=== PATIENT | male | born 1945 | race Caucasian/White ===

== ENCOUNTER 2017-03-19 08:59 | Observation (INO) ==
[2017-03-19] MEDS ORDERED: ASPIRIN 325 MG TABLET PO STA (09:12)
[2017-03-19] MEDS ORDERED: ENOXAPARIN 100 MG/ML SYRINGE SUBCUT STA (09:12)
[2017-03-19] MEDS ORDERED: MORPHINE 2 MG/1 ML SYRINGE IV PRN (09:12)
[2017-03-19] MEDS ORDERED: ONDANSETRON 4 MG/2 ML VIAL IV PRN (09:12)
[2017-03-19] MEDS ORDERED: NITROGLYCERIN SL 0.4 MG TABLET SL PRN (09:12)
[2017-03-19] MEDS ORDERED: NITROGLYCERIN 2% OINT 1 INCH/GM PACK TOP STA (09:12)
--- NOTE | 2017-03-19 09:15 | EKG Report ---
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
--- NOTE | 2017-03-19 09:29 | XRay Report ---
XR chest 2V Date: 03/19/2017 9:12 AM History: Chest pain Comparison: 11/17/2014 Technique: PA and lateral chest Findings: The heart is normal in size with coronary artery calcifications/stents. The lungs are overexpanded with chronic scarring. Minimal atelectasis at the left lung base. Stable mediastinum. Persistent dextroscoliosis of the thoracic spine with superimposed degenerative changes. Impression: COPD with chronic scarring. Minimal atelectasis at the left lung base. Coronary artery calcifications/stents. Stable scoliosis. PROCEDURE INTERPRETED AT [facility] DEPARTMENT OF RADIOLOGY Final Report Signed by: Dr. Cyndi Barrios
--- NOTE | 2017-03-19 09:30 | Emergency Department Note ---
Kamlesh Guadalupe Brooke, am scribing for, and in the presence of, Joel Garcia MD 09:26 . Radha Guadalupe James D, MD, personally performed the services described in this documentation, ascribed by Joan Whitlock in my presence, and it is both accurate and complete 928 . Arrival - Arrival Chief Complaint: Chest Pain Stated Complaint: chest pain,neck pain ED Nursing Triage Note: Pt c/o CP that awoke him this am with left sided neck pain and not feeling well. Denies SOB. Mode of Arrival: Ambulatory Limitations: No Limitations Source: Patient, RN Notes Reviewed Time Seen by Provider: 03/19/17 09:12 - History of Present Illness HPI Narrative: Patient is a 71 year old male who presents to the ED with c/o chest pain that started around 0400 this morning. Patient says the pain woke him from his sleep and lasted about an hour. He says he is also having pain in the left side of his neck. Patient says the chest pain is gone now but he is still having the neck pain. Patient says he had "gas" this morning and says he "finally went to the bathroom" and felt a "little better." He denies having any shortness of breath, diaphoresis, nausea, blood in stool, melena, or abdominal pain. Patient took an 81mg ASA this morning. He says he had an MS(stent placed) about two years ago and his Engineering Agent is Dr. Meyers. He has an appointment with him next week. Patient says the pain he had this morning "kind of felt the same as when I had my heart attack." Patient says he takes the ASA daily and also take "a quarter" of a 75mg Plavix. Patient also has PMHx of CAD, HTN, migraines , renal tumor, and hemorrhoids. He is not a smoker. Onset (ago): hour(s) (5) Consistency: intermittent, now resolved Allergies/Adverse Reactions: Allergies Allergy/AdvReac Type Severity Reaction Status Date / Time No Known Allergies Allergy Unverified 08/27/15 13:48 Home Medications: Home Medications Medication Instructions Recorded Confirmed Type Carvedilol 3.25 tablet PO BID 08/27/15 03/19/17 History Clopidogrel [Plavix] 75 mg PO DAILY #30 tablet 08/30/15 03/19/17 Rx Aspirin [Aspirin EC] 81 mg PO DAILY 03/19/17 03/19/17 History Atorvastatin [Lipitor] 20 mg PO DAILY 03/19/17 03/19/17 History Review of System - Review of System 12 point system: reviewed and no additional remarkable complaints except as stated - Review of System Constitutional: Absent: fever Respiratory: Absent: respiratory distress Cardiovascular: Present: chest pain Gastrointestinal: Absent: abdominal pain, nausea Musculoskeletal: Present: neck pain (left side) Skin: Absent: rash Medical,Surgical,& Family Hx - Medical History Cardio: History of: CAD, Hypertension, MS Neurology: History of: Migraine No history of: Seizures HEENT: History of: Ear Problem (hard of hearing) Renal: History of: Renal Problems (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) Gastrointestinal: History of: Hemorrhoids - Surgical History Cardiac Surgeries: Sugical HX of: Cardiac Catheterization (STENT IN OCTOBER) Thoracic Surgeries: Patient denies;: Organ Transplant HEENT Surgeries: Surgical HX of: Tonsilectomy & Adenoidectomy Abdominal Surgeries: Surgical HX of: Colonoscopy (2006 or 2007) - Family History Family History: Reports;: Family Cancer (mom), Family Hypertension (mom) Denies;: Family Diabetes - Social History Smoking Status: Never smoker Exam Vital Signs: Vital Signs Temperature 97.5 F L 03/19/17 09:06 Pulse Rate 67 03/19/17 09:17 Respiratory Rate 16 03/19/17 09:17 Blood Pressure 153/96 03/19/17 09:06 O2 Sat by Pulse Oximetry 99 03/19/17 09:06 GENERAL: This is a well-nourished well-developed white male in no apparent distress. VITAL SIGNS: Reviewed HEENT: Head is atraumatic and normocephalic. Pupils are equal round react to light. Extraocular movements are intact. Oropharynx is benign with moist mucous membranes. NECK: Neck is soft and supple without tenderness. There are no masses. There is no lymphadenopathy. LUNGS: Lungs are clear to auscultation. Chest rises symmetrically. There is no chest wall tenderness. CV: Heart is regular rate and rhythm without murmurs rubs or gallops. ABDOMEN: Abdomen is soft, nontender to palpation. There are no abdominal abnormal masses palpated. There is no organomegaly. Bowel sounds are present and active. SKIN: Skin is warm and dry. No rash. EXTREMITIES: Patient has full range of motion without tenderness. There is no pedal edema. NEUROLOGIC: Awake, alert, and oriented 4. Cranial nerves II through XII are intact. Motor is 5 over 5 in all extremities bilaterally. Course - Consultations Consultation #1: Discussed with Dr. Brown. Patient will be seen in the emergency department Time: 10:32 Results - Labs CBC & BMP: 03/19/17 09:11 03/19/17 09:11 Lab Results: I have reviewed the patients labs Labs: Laboratory Tests 03/19/17 09:11 Troponin I < 0.015 - EKG EKG results: interpreted by ERMD - Impressions EKG: Normal sinus rhythm with rate of 78, normal ST-T waves, occasional ventricular premature complexes. - Diagnostic Findings Procedure: Chest x-ray: image reviewed by me (No cardiomegaly, no infiltrates, no pleural effusions.) Disposition Clinical Impression: Unstable angina, Coronary artery disease Case discussed with: patient Disposition: Still a Patient Condition: Stable Time of Disposition: 10:20
[2017-03-19] MEDS ORDERED: NITROGLYCERIN 2% OINT 1 INCH/GM PACK TOP ONE (09:38)
[2017-03-19] MEDS ORDERED: ENOXAPARIN 100 MG/ML SYRINGE SUBCUT ONE (09:38)
[2017-03-19] MEDS ORDERED: ASPIRIN 325 MG TABLET ONE (09:38)
[2017-03-19 09:41] LABS: Basophils % 0.3 % (0.0-0.8); Eosinophils # 0.1 10*3/uL (0.0-0.87); Eosinophils % 1.3 % (0.00-10.9); Hematocrit 40.7 VOL% (42.0-52.0); Hemoglobin 14.3 GM/DL (14.0-18.0); Immature Granulocytes % 0.5 %; Immature Granulocytes Absolute 0.03 #; Lymphocytes % 16.2 % (21.2-54.2); Mean Corpuscular HGB Conc 35.1 GM/DL (32-36); Mean Corpuscular Hemoglobin 32 PG (27-34); Mean Platelet Volume 11.1 FL (9.6-12.0); Monocytes # 0.5 10*3/uL (0.11-0.8); Monocytes % 7.3 % (1.7-12.7); Neutrophils # 4.7 10*3/uL (1.4-7.4); Neutrophils % 74.4 % (38.7-73.9); Platelet Count 183 T/CUMM (130-400); Red Blood Count 4.52 MC/CUMM (3.8-5.5); Red Cell Distribution Width 11.9 % (9.3-17.3); White Blood Count 6.3 T/CUMM (4-12)
[2017-03-19 09:55] LABS: Albumin 4.1 G/DL (3.4-5.0); Bilirubin,Total 0.5 MG/DL (0.2-1.0); Calcium 9.1 MG/DL (8.5-10.1); Total Protein 6.6 G/DL (6.4-8.3)
[2017-03-19 09:56] LABS: Osmolality,Calculated 283.1 MOS/KG (273-304); PT Patient Result 10.9 SECS; Partial Thromboplastin Time 27.1 SECS (0-40); Potassium 4.5 MMOL/L (3.5-5.1)
[2017-03-19] MEDS ORDERED: ZALEPLON 5 MG CAPSULE PO PRN (10:58)
[2017-03-19] MEDS ORDERED: ACETAMINOPHEN 325 MG TABLET PO PRN (10:58)
--- NOTE | 2017-03-19 11:06 | Cardiology History & Physical ---
Assessment and Plan - Time spent with patient Time spent with patient: Greater than 30 minutes (Film review, examination, documentation, orders and history) (1) Epigastric pain Status: Acute Assessment and plan: This certainly is concerning for cardiac. The patient has known PCI in the circumflex and RCA. Also given the associated with medial and epigastric nature and GI distress could be related to GI. I recommended that we admit and rule out for myocardial infarction this is negative consider options. At this time he has a very low MICAELA risk score with no EKG changes only a single episode but he is on dual antiplatelet therapy. I suspect this is gastrointestinal in nature we will get amylase lipase and LFTs just to rule this out he has no epigastric tenderness at this time. If he rules out will anticipate discharge with follow-up outpatient nuclear stress test Current Visit: Yes (2) Coronary artery disease Status: Chronic Current Visit: No Qualifiers: Coronary Disease-Associated Artery/Lesion type: [place] artery Associated angina: without angina (3) Dyslipidemia Status: Chronic Current Visit: No (4) History of coronary artery stent placement Status: Chronic Current Visit: No History of Present Illness Chief complaint: Chest pain History of present illness: Mr. Michael is a 71 year old male who has a history of coronary artery disease and underwent PCI by Dr. Dom Meyers on November 18, 2014 of the RCA and the left circumflex at the time of acute coronary syndrome myocardial infarction. The patient had stents to the RCA in the left circumflex he had suboptimal result in the PDA which he previously been occluded. There were collaterals from the left system to the distal posterior lateral branch and PDA completion of the procedure. There was also some disease in the LAD. The patient states at that time he had a very intense left shoulder and scapular pain. This is similar to what he had this morning around 4:00. 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 He subsequently went home had some warm tea and went to bed. This morning around 4:00 he awoke and with bloating in the epigastrium and discomfort in his abdomen some mild nausea but no diaphoresis he got up and went to the restroom and did feel a little bit better but still did not feel right he went to lie down in his recliner and he developed a very sharp severe pain in the left trapezius and shoulder region went down toward his scapula. He again did not have nausea or vomiting. This was very concerning to him so he took a half of a normal dose of his Coreg and felt a little better he subsequent came to the emergency room was evaluated there we had negative troponin and nondiagnostic EKG. The patient states that he have nitroglycerin at home but he did not think to take one. He states he came in and received topical nitroglycerin subcu Lovenox and now feels better. He is pain-free and I examined him in the emergency room. He states the original epigastric pain and bloating was different than previous myocardial infarction but the intense pain he had in the shoulder was exactly like it was before. The patient has not experienced any exertional chest pain prior to today and has not had any physical limitations to his active daily lifestyle. Home Medications Medication Instructions Recorded Confirmed Type Carvedilol 3.25 tablet PO BID 08/27/15 03/19/17 History Clopidogrel [Plavix] 75 mg PO DAILY #30 tablet 08/30/15 03/19/17 Rx Aspirin [Aspirin EC] 81 mg PO DAILY 03/19/17 03/19/17 History Atorvastatin [Lipitor] 20 mg PO DAILY 03/19/17 03/19/17 History Allergies Allergy/AdvReac Type Severity Reaction Status Date / Time No Known Allergies Allergy Unverified 08/27/15 13:48 - Constitutional Constitutional: Absent: anorexia, chills, weakness, weight gain - EENT Eyes: Absent: blurry vision Ears: Present: decreased hearing Nose, mouth and throat: Absent: dysphagia, epistaxis - Cardiovascular Cardiovascular: Present: chest pain at rest. Absent: chest pain with activity, diaphoresis, dyspnea, dyspnea on exertion, edema - Respiratory Respiratory: Absent: cough, dyspnea, dyspnea on exertion - Gastrointestinal Gastrointestinal: Present: abdominal pain, bloating, cramping, dyspepsia, nausea. Absent: constipation, heartburn, melena - Genitourinary Genitourinary: Absent: difficulty urinating, dysuria, flank pain, nocturia - Musculoskeletal Musculoskeletal: Absent: arthralgias, joint swelling - Neurological Neurological: Absent: abnormal gait, abnormal speech, disequilibrium - Psychiatric Psychiatric: Absent: anxiety, depression, visual hallucinations - Endocrine Endocrine: Absent: cold intolerance, heat intolerance - Hematologic/Lymphatic Hematologic/Lymphatic: Absent: easy bleeding, easy bruising Medical,Surgical,& Family Hx - Medical History Cardio: History of: CAD (Myocardial infarction with PCI of the RCA is culprit lesion PCI of left cir), Hypertension, CA Neurology: History of: Migraine No history of: Seizures HEENT: History of: Ear Problem (hard of hearing) Renal: History of: Renal Problems (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) Gastrointestinal: History of: Hemorrhoids - Surgical History Cardiac Surgeries: Sugical HX of: Cardiac Catheterization (STENT IN OCTOBER 2014 ) Thoracic Surgeries: Patient denies;: Organ Transplant HEENT Surgeries: Surgical HX of: Tonsilectomy & Adenoidectomy Abdominal Surgeries: Surgical HX of: Colonoscopy (2006 or 2007) - Family History Family History: Reports;: Family Cancer (mom), Family Hypertension (mom) Denies;: Family Diabetes - Social History Smoking Status: Never smoker Frequency of Alcohol Use: None Type of Drug Use: None Marital Status: Lives With:: Spouse Functional capacity: independent ambulation Cardiology Physical Exam - Constitutional Vitals: Vital Signs Temp Pulse Resp BP Pulse Ox 97.5 F L 67 16 153/96 99 03/19/17 09:06 03/19/17 09:17 03/19/17 09:17 03/19/17 09:06 03/19/17 09:06 Intake and Output 03/18/17 03/19/17 03/19/17 23:59 07:59 15:59 Other: Weight 71.214 kg Patient Weight 03/19/17 23:59 Weight 71.214 kg General appearance: normal weight - Head Head exam: Present: normal inspection - Eye Eye exam: Present: EOMI Pupils: Present: LUCA - ENT ENT exam: Present: normal exam - Neck Neck exam: Present: normal inspection - Respiratory Respiratory exam: Present: clear to auscultation bilaterally - Cardiovascular Cardiovascular exam: Present: regular rate and rhythm (No rubs murmurs gallops or clicks) - GI/Abdominal GI/Abdominal exam: Present: normal bowel sounds - Extremities Exam Extremities exam: Present: normal inspection - Back Exam Back exam: Present: normal inspection - Neurological Exam Neurological exam: Present: alert, oriented X3, CN II-XII intact - Psychiatric Psychiatric exam: Present: normal affect, flat affect - Skin Skin exam: Present: normal color Result/EKG - Labs CBC & BMP: 03/19/17 09:11 03/19/17 09:11 Labs: Laboratory Results - last 24 hr 03/19/17 03/19/17 03/19/17 09:11 09:11 09:11 WBC 6.3 RBC 4.52 Hgb 14.3 Hct 40.7 L MCV 90.0 MCH 32 MCHC 35.1 RDW 11.9 Plt Count 183 MPV 11.1 Neut % (Auto) 74.4 H Lymph % (Auto) 16.2 L [place] % (Auto) 7.3 Eos % (Auto) 1.3 Baso % (Auto) 0.3 Neut # (Auto) 4.7 Lymph # (Auto) 1.0 L [place] # (Auto) 0.5 Eos # (Auto) 0.1 Baso # (Auto) 0.0 Immature Gran % 0.5 Nucleated RBC % 0.0 Immature Gran # 0.03 Nucleated RBCs # 0.00 INR 1.0 PT Patient/Control Mix 10.9 Circ Anticoag PTT 27.1 Sodium 142 Potassium 4.5 Chloride 109 H Carbon Dioxide 28 Anion Gap 9.5 BUN 14 Creatinine 1.10 GFR Calculation 76 BUN/Creatinine Ratio 12.00 Glucose 101 Calculated Osmolality 283.1 Calcium 9.1 Total Bilirubin 0.50 AST 19 ALT 25 Alkaline Phosphatase 101 Troponin I Total Protein 6.6 Albumin 4.1 Globulin 2.5 Albumin/Globulin Ratio 1.6 03/19/17 09:11 WBC RBC Hgb Hct MCV MCH MCHC RDW Plt Count MPV Neut % (Auto) Lymph % (Auto) [place] % (Auto) Eos % (Auto) Baso % (Auto) Neut # (Auto) Lymph # (Auto) [place] # (Auto) Eos # (Auto) Baso # (Auto) Immature Gran % Nucleated RBC % Immature Gran # Nucleated RBCs # INR PT Patient/Control Mix Circ Anticoag PTT Sodium Potassium Chloride Carbon Dioxide Anion Gap BUN Creatinine GFR Calculation BUN/Creatinine Ratio Glucose Calculated Osmolality Calcium Total Bilirubin AST ALT Alkaline Phosphatase Troponin I < 0.015 Total Protein Albumin Globulin Albumin/Globulin Ratio - EKG EKG results: interpreted by me, WNL Quality Measures - VTE Contraindication to Pharmacological VTE Prophylaxis: Already on Theraputic Agent , No Prophylaxis Needed
[2017-03-19 11:28] LABS: Albumin 4.2 G/DL (3.4-5.0); Bilirubin,Direct 0.1 MG/DL (0.0-0.20); Bilirubin,Indirect 0.4 MG/DL (0.0-1.0); Bilirubin,Total 0.5 MG/DL (0.2-1.0); Total Protein 6.6 G/DL (6.4-8.3)
--- NOTE | 2017-03-19 12:21 | EKG Report ---
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
[2017-03-19] MEDS: CARVEDILOL 3.125 MG TABLET PO SCH (17:51)
[2017-03-19] MEDS: SODIUM CHLORIDE 0.45% 1,000 ML IV SCH (17:52)
[2017-03-20 05:35] LABS: Basophils % 0.2 % (0.0-0.8); Eosinophils # 0.1 10*3/uL (0.0-0.87); Eosinophils % 2.6 % (0.00-10.9); Hematocrit 39.8 VOL% (42.0-52.0); Hemoglobin 13.9 GM/DL (14.0-18.0); Immature Granulocytes % 0.4 %; Immature Granulocytes Absolute 0.02 #; Lymphocytes # 1.4 10*3/uL (1.4-4.0); Lymphocytes % 29.7 % (21.2-54.2); Mean Corpuscular HGB Conc 34.9 GM/DL (32-36); Mean Corpuscular Hemoglobin 31 PG (27-34); Mean Platelet Volume 11.5 FL (9.6-12.0); Monocytes # 0.5 10*3/uL (0.11-0.8); Monocytes % 10.6 % (1.7-12.7); Neutrophils # 2.6 10*3/uL (1.4-7.4); Neutrophils % 56.5 % (38.7-73.9); Platelet Count 151 T/CUMM (130-400); Red Blood Count 4.42 MC/CUMM (3.8-5.5); Red Cell Distribution Width 11.9 % (9.3-17.3); White Blood Count 4.6 T/CUMM (4-12)
[2017-03-20] MEDS: SODIUM CHLORIDE 0.45% 1,000 ML IV SCH ×2 (05:59→09:00)
[2017-03-20 06:00] LABS: Calcium 8.8 MG/DL (8.5-10.1); Osmolality,Calculated 281.1 MOS/KG (273-304); Risk Ratio 2.88
[2017-03-20] MEDS: CARVEDILOL 3.125 MG TABLET PO SCH (08:52)
[2017-03-20] MEDS ORDERED: ATORVASTATIN 20 MG TABLET PO SCH (09:00)
[2017-03-20] MEDS ORDERED: ASPIRIN EC 81 MG TABLET PO SCH (09:00)
[2017-03-20] MEDS ORDERED: PANTOPRAZOLE 40 MG TABLET PO SCH (09:00)
[2017-03-20] MEDS ORDERED: CLOPIDOGREL 75 MG TABLET PO SCH (09:00)
--- NOTE | 2017-03-20 09:55 | Discharge Summary ---
Addendum entered and electronically signed by Ree Mccoy NP 03/20/17 11:56 : Patient will need to have outpatient nuclear cardiac stress testing tomorrow at cardiovascular [facility]. This will be read by Dr. muro. Original Note: <Ree Mccoy - Last Filed: 03/20/17 11:39> Hospital Course - Hospital Course Hospital Course: Registered Private Duty Nurse: Dr. Meyers Mr. Michael is a 71 year old male who has a history of coronary artery disease and underwent PCI by Dr. Dom Meyers on November 18, 2014 of the RCA and the left circumflex at the time of acute coronary syndrome myocardial infarction. The patient had stents to the RCA in the left circumflex he had suboptimal result in the PDA which he previously been occluded. There were collaterals from the left system to the distal posterior lateral branch and PDA completion of the procedure. There was also some disease in the LAD. He presented to [facility] with complaints of epigastric pain as well as intense left shoulder and scapular pain. Patient ruled out for myocardial infarction. Cardiac biomarkers negative 3. At this time he has a very low MICAELA risk score with no EKG changes. He is on dual antiplatelet therapy. I suspect this is gastrointestinal in nature. He will be discharged home on PPI. Amylase, Lipase and LFTs within normal limits. Lipid panel reviewed, LDL cholesterol noted to be 101. Patient's Lipitor dose was increased to 20 mg daily. Blood pressure is suboptimally controlled, MILTON inhibitor was added to patient's medication regimen. Patient is anxious for discharge home. Patient has been given an appointment for outpatient nuclear stress test at the cardiovascular [facility] tomorrow. He will then follow up with Dr. Meyers March 22, 2017 at 1:30. Having felt that patient has not maximal medical therapy, he will be discharged home in stable condition. Patient has been given an appointment for outpatient stress test tomorrow at cardiovascular [facility]. Patient will then keep his follow-up appointment with Dr. Meyers March 22 at 1:30. Patient as well as his both verbalized understanding of discharge instructions and discharge medications. I saw and examined with Ms. Mccoy the morning of discharge. Also called and discussed with Dr. Meyers his primary powder guard we have a plan for him to have a gated walking nuclear stress test tomorrow and follow with Dr. meyers on . He is ruled out for myocardial infarction is not any other discomfort. I think this was most likely GI but he does have a history of coronary artery disease. - Time spent with patient Time with patient DS: Greater than 30 minutes Diagnosis - Discharge Diagnosis (1) Atypical chest pain Status: Resolved (2) Epigastric pain Status: Resolved (3) Coronary artery disease Status: Chronic (4) Dyslipidemia Status: Chronic (5) History of coronary artery stent placement Status: Chronic Specialty Discharge - Follow Up or Referrals Follow up with: Dom Meyers MD [Physician] - (Patient will need a cardiac stress test scheduled for tomorrow at [facility]. Patient will then keep his follow-up appointment with Dr. Meyers March 22 at 1:30. STRESS TEST IS SCHEDULED FOR MARCH 21 AT 9:00 NPO AT MIDNIGHT BEFORE AT [facility]) Discharge Plan - Discharge Data Disposition: Disch To Home/Self Care Condition at Discharge: Stable Discharge Diet: heart healthy Activity: resume usual activities as tolerated Hygiene: no restrictions, may shower Weight Bearing at Discharge: weight bear as tolerated Driving: not until seen by doctor Contact your physician if you experience:: fever over 101, Difficulty voiding, Redness or swelling, Nausea/Vomiting, Shortness of breath, Bleeding, pain uncontrolled by pain medications - Discharge Medications New Atorvastatin [Lipitor] 20 mg PO DAILY #30 tablet Clopidogrel [Plavix] 75 mg PO DAILY #30 tablet Lisinopril [Prinivil] 5 mg PO DAILY #30 tablet Nitroglycerin Sl Tab [Nitrostat] 0.4 mg SL Q5M PRN #1 bottle PRN Reason: Chest Pain Pantoprazole Tab [Protonix Tab] 40 mg PO DAILY #30 tablet Continue Carvedilol 3.25 mg PO BID Aspirin [Aspirin EC] 81 mg PO DAILY Discontinued Clopidogrel [Plavix] 18.75 mg PO BEDTIME Atorvastatin [Lipitor] 10 mg PO BEDTIME - Follow Up or Referral Follow Up: Dom Meyers MD [Physician] - (Patient will need a cardiac stress test scheduled for tomorrow at [facility]. Patient will then keep his follow-up appointment with Dr. Meyers March 22 at 1:30. STRESS TEST IS SCHEDULED FOR MARCH 21 AT 9:00 NPO AT MIDNIGHT BEFORE AT [facility]) - Forms/Instructions Exam - Constitutional Vitals: Period Temp Pulse Resp BP Sys/Phelps Pulse Ox Last 24 Hr 96.6 F-98.1 F 58-72 17-22 119-164/68-96 95-98 General appearance: normal weight, no acute distress - Head Head exam: Present: normal inspection, normocephalic, atraumatic - Neck Neck exam: Present: normal inspection. Absent: lymphadenopathy, tenderness, thyromegaly - Respiratory Respiratory exam: Present: clear to auscultation bilaterally. Absent: accessory muscle use, chest wall tenderness, rales, rhonchi, stridor, wheezes - Cardiovascular Cardiovascular exam: Present: regular rate and rhythm. Absent: gallop, rubs, systolic murmur - GI/Abdominal GI/Abdominal exam: Present: normal bowel sounds, soft. Absent: firm, guarding, mass, tenderness - Extremities Exam Extremities exam: Present: normal inspection, normal capillary refill. Absent: calf tenderness, edema - Back Exam Back exam: Present: normal inspection - Neurological Exam Neurological exam: Present: alert, oriented X3, normal gait - Psychiatric Psychiatric exam: Present: normal affect, normal mood - Skin Skin exam: Present: normal color, warm, dry Discharge Results Procedures and tests throughout hospitalization: Pending Orders 03/21/17 09:30 NM shannon perf SPECT rest or str Routine Labs on day of discharge: Labs from last 24 hours 03/20/17 03/20/17 03/19/17 04:09 04:09 18:27 WBC 4.6 RBC 4.42 Hgb 13.9 L Hct 39.8 L MCV 90.0 MCH 31 MCHC 34.9 RDW 11.9 Plt Count 151 MPV 11.5 Neut % (Auto) 56.5 Lymph % (Auto) 29.7 [place] % (Auto) 10.6 Eos % (Auto) 2.6 Baso % (Auto) 0.2 Neut # (Auto) 2.6 Lymph # (Auto) 1.4 [place] # (Auto) 0.5 Eos # (Auto) 0.1 Baso # (Auto) 0.0 Immature Gran % 0.4 Nucleated RBC % 0.0 Immature Gran # 0.02 Nucleated RBCs # 0.00 Sodium 142 Potassium 5.0 Chloride 108 H Carbon Dioxide 29 Anion Gap 10.0 BUN 13 Creatinine 1.10 GFR Calculation 76 BUN/Creatinine Ratio 11.00 Glucose 83 Calculated Osmolality 281.1 Calcium 8.8 Troponin I < 0.015 Triglycerides 65 Cholesterol 170 LDL Cholesterol 101.0 VLDL Cholesterol 13.0 HDL Cholesterol 59 Heart Disease Risk Ratio 2.88 03/19/17 03/19/17 15:30 12:28 WBC RBC Hgb Hct MCV MCH MCHC RDW Plt Count MPV Neut % (Auto) Lymph % (Auto) [place] % (Auto) Eos % (Auto) Baso % (Auto) Neut # (Auto) Lymph # (Auto) [place] # (Auto) Eos # (Auto) Baso # (Auto) Immature Gran % Nucleated RBC % Immature Gran # Nucleated RBCs # Sodium Potassium Chloride Carbon Dioxide Anion Gap BUN Creatinine GFR Calculation BUN/Creatinine Ratio Glucose Calculated Osmolality Calcium Troponin I < 0.015 < 0.015 Triglycerides Cholesterol LDL Cholesterol VLDL Cholesterol HDL Cholesterol Heart Disease Risk Ratio - Imaging and Cardiology Procedure: Chest x-ray: report reviewed by DS: Provider Date of admission: 03/19/17 10:58 Primary care physician: Rick Hassan DO Attending physician on admission: Echo Brown DO Discharging clinician: Ree Mccoy NP Expected date of discharge: 03/20/17 <Echo Brown - Last Filed: 03/20/17 13:30> Diagnosis - Discharge Diagnosis (1) Epigastric pain Status: Resolved (2) Coronary artery disease Status: Chronic (3) Dyslipidemia Status: Chronic (4) History of coronary artery stent placement Status: Chronic
[2017-03-20] MEDS ORDERED: LISINOPRIL 5 MG TABLET PO SCH (10:30)
[2017-03-20 11:42] VITALS: BP 152/87
== END 2017-03-20 14:00 | disposition home or self-care (01) ==
LOC: N.EDINP 08:59 → N.ED 08:59 → N.TELES 11:18
PROVIDERS: ADMIT Internal Medicine Cardiovascular Disease; ATTEND Internal Medicine Cardiovascular Disease

== ENCOUNTER 2019-06-20 23:59 | Observation (INO) ==
[2019-06-21 00:27] LABS: Basophils % 0.4 % (0.0-0.8); Eosinophils # 0.2 10*3/uL (0.0-0.87); Eosinophils % 2.5 % (0.00-10.9); Hematocrit 41.8 VOL% (42.0-52.0); Hemoglobin 14.1 GM/DL (14.0-18.0); Immature Granulocytes % 0.3 %; Immature Granulocytes Absolute 0.02 #; Lymphocytes # 1.4 10*3/uL (1.4-4.0); Lymphocytes % 18.4 % (21.2-54.2); Mean Corpuscular HGB Conc 33.7 GM/DL (32-36); Mean Corpuscular Volume 93.7 FL (87-102); Mean Platelet Volume 11.2 FL (9.6-12.0); Neutrophils % 69.4 % (38.7-73.9); Platelet Count 179 T/CUMM (130-400); Red Blood Count 4.46 MC/CUMM (3.8-5.5); White Blood Count 7.6 T/CUMM (4-12)
[2019-06-21 00:36] LABS: PT Patient Result 10.7 SECS (9.6-12.2); Partial Thromboplastin Time 24.4 SECS (20.8-36.0)
[2019-06-21 00:48] LABS: Albumin 4.3 G/DL (3.4-5.0); Bilirubin,Total 0.9 MG/DL (0.2-1.0); Calcium 9.7 MG/DL (8.5-10.1); Total Protein 7.3 G/DL (6.4-8.3)
[2019-06-21] MEDS ORDERED: NITROGLYCERIN 2% OINT 1 INCH/GM PACK TOP STA (00:54)
[2019-06-21] MEDS ORDERED: ASPIRIN EC 325 MG TABLET PO STA (00:54)
[2019-06-21] MEDS ORDERED: NITROGLYCERIN SL 0.4 MG TABLET SL STA (00:55)
[2019-06-21] MEDS ORDERED: ENOXAPARIN 30 MG/0.3 ML SYRINGE SUBCUT STA (00:55)
[2019-06-21] MEDS ORDERED: PANTOPRAZOLE 40 MG VIAL IV STA (00:57)
[2019-06-21] MEDS ORDERED: ENOXAPARIN 80 MG/0.8 ML SYRINGE SUBCUT ONE (01:42)
[2019-06-21] MEDS ORDERED: MORPHINE 4 MG/1 ML VIAL IV PRN (05:41)
[2019-06-21] MEDS ORDERED: ACETAMINOPHEN 325 MG TABLET PO PRN (05:41)
[2019-06-21] MEDS ORDERED: NITROGLYCERIN SL 0.4 MG TABLET SL PRN (05:41)
[2019-06-21] MEDS ORDERED: ONDANSETRON 4 MG/2 ML VIAL IV PRN (05:41)
[2019-06-21 06:56] LABS: Risk Ratio 2.38; Thyroid Stimulating Hormone 1.08 uIU/ml (0.358-3.74); VLDL CHOLESTEROL 10.2 MG/DL
[2019-06-21] MEDS ORDERED: CARVEDILOL 3.125 MG TABLET PO SCH (08:00)
[2019-06-21] MEDS ORDERED: ASPIRIN EC 81 MG TABLET PO SCH (09:00)
[2019-06-21] MEDS ORDERED: ATORVASTATIN 20 MG TABLET PO SCH (09:00)
[2019-06-21] MEDS ORDERED: CLOPIDOGREL 75 MG TABLET PO SCH (09:00)
[2019-06-21] MEDS ORDERED: PANTOPRAZOLE 40 MG TABLET PO SCH (09:00)
[2019-06-21] MEDS ORDERED: ALUMINUM/MAGNES/SIMETH MAX STR 30 ML UDCUP PO PRN (10:11)
[2019-06-21] MEDS ORDERED: ISOSORBIDE MONONITRATE 30 MG TABLET PO SCH (10:30)
[2019-06-21 12:03] VITALS: BP 102/62
[2019-06-21] MEDS ORDERED: ENOXAPARIN 80 MG/0.8 ML SYRINGE SUBCUT SCH (14:00)
== END 2019-06-21 12:47 | disposition home or self-care (01) ==
LOC: N.EDINP 23:59 → N.ED 23:59 → SUATTDRO 06-21 03:26 → N.TELEN 06-21 04:39
PROVIDERS: ADMIT Internal Medicine; ATTEND Internal Medicine